=== PATIENT | male | born 1975 | race Caucasian/White ===

== ENCOUNTER 2019-02-21 17:03 | Emergency (ER) | payer BC, SELFPAY ==
[2019-02-21 17:08] VITALS: BP 147/91; PULSE 89; RESP 20; TEMP 36.8; O2SAT 97
--- NOTE | 2019-02-21 17:23 | W.ED.GENAD ---
Discharge Plan Disposition Patient Disposition: HOME Condition: Stable Discharge Details Chief Complaint: EyeProblem Clinical Impression: Chemosis of conjunctiva Primary Care Provider: None,None ED Provider: Amari Sim Home Meds and New Rx's Prescriptions: New prednisone 20 mg tablet 60 mg PO DAILY 5 Days Qty: 15 RF: 0 Continued clonazepam 0.5 mg Tablet 0.5 mg PO PRN PRNRF: 0 bupropion HCl [Wellbutrin XL] 150 mg Tablet Extended Release 24 Hr 150 mg PO DAILY RF: 0 desvenlafaxine succinate [Pristiq] 25 mg Tablet Extended Release 24 Hr 100 mg PO DAILY RF: 0 Discharge Instructions Additional Instructions: you can take benadryl as needed for itching if not better by Monday see either optometry or ophthamology. [facility] is in [facility] and can be reached at [phone] if you have severe worsening pain, vision changes or fevers return to the emergency department Medical Decision Making 43 yo male who denies chronic medical problems comes in with swelling and itching of the left lower eye. Denies trauma or pain, started a few hours ago while at the [employer]. Denies deep eye pain, vision changes. He has no periorbital edema, does have swelling of the inferior half of the left sclera consistent with chemosis. NO pain and no conjunctivits, 20/25 vision in left eye and 20/60 in the right eye, no evidence of any traumatic findings such as lacerations or globe rupture and normal iop. Will d/c on prednisone and advised if not better to see ophto/optometry Differential Diagnosis chemosis, subconjunctival hermorrhage, conjunctivitis HPI General Mode of arrival: ambulatory. Date/Time Provider Initiated Documentation: 02/21/19 17:05. Limitations to Documentation: no limitations. Information obtained by: patient. History of Present Illness 43 year old M presents to the emergency department with the chief complaint of left eye swelling, described as moderate, and it has been constant. No relieving factors improve symptom(s), No exacerbating factors reported . Patient did receive the following treatments prior to arrival, none Related Data Home Medications Medication Instructions Recorded Confirmed bupropion HCl [Wellbutrin XL] 150 mg PO DAILY 02/21/19 02/21/19 clonazepam 0.5 mg PO PRN PRN 02/21/19 02/21/19 desvenlafaxine succinate [Pristiq] 100 mg PO DAILY 02/21/19 02/21/19 prednisone 60 mg PO DAILY 5 Days #15 tab 02/21/19 Previous Rx's Medication Instructions Recorded prednisone 60 mg PO DAILY 5 Days #15 tab 02/21/19 Allergies Allergy/AdvReac Type Severity Reaction Status Date / Time No Known Allergies Allergy Unverified 02/21/19 17:10 General Stated Complaint: EyeProblem CALVIN: 3 Review of Systems Review of Systems All systems reviewed & are unremarkable except as noted in HPI and below Constitutional Denies chills, Denies fever(s) and Denies weakness Cardiovascular Denies chest pain and Denies dyspnea Respiratory Denies cough and Denies dyspnea Gastrointestinal Denies abdominal pain, Denies nausea and Denies vomiting Neurologic Denies weakness PFSH Social History Smoking/Tobacco Use Status: Never Drug use: Occasionally Substance use type: marijuana Details: CBD edibles Exam Const General: no acute distress Orientation: alert HENMT Head: normal to inspection Ears: external ears normal General nose exam: external nose normal Mouth: moist mucous membranes Eyes Alignment and Position: alignment normal Neck Neck: normal visual inspection Resp Effort & Inspection: normal respiratory effort and able to speak in complete sentences Cardio Rate: regular rate Skin General skin exam: no rashes or lesions noted Neuro General: alert and oriented x3 Extrem General: normal to inspection Psych Mental Status: mental status grossly normal Course Vital Signs Temperature 36.8 C 02/21/19 17:08 Pulse 89 02/21/19 17:08 Respiratory Rate 20 02/21/19 17:08 Blood Pressure 147/91 H 02/21/19 17:08 Pulse Oximetry 97 02/21/19 17:08 Temperature 36.8 C 02/21/19 17:08 Temperature Source Temporal Artery Scan 02/21/19 17:08 Pulse 89 02/21/19 17:08 Respiratory Rate 20 02/21/19 17:08 Respiratory Effort 02/21/19 17:17 Blood Pressure 147/91 H 02/21/19 17:08 Blood Pressure Position Sitting 02/21/19 17:08 Pulse Oximetry 97 02/21/19 17:08 Oxygen Delivery Method Room Air 02/21/19 17:08 Oxygen Flow Rate 0 02/21/19 17:08 Pain Level 1 02/21/19 17:08
[2019-02-21 17:35] VITALS: BP 147/91; PULSE 89; RESP 20; O2SAT 97
== END 2019-02-21 17:35 | disposition home or self-care (01) ==
PROVIDERS: Emergency Provider Emergency Medicine
DX: H11.422 Conjunctival edema, left eye (principal)
CPT/HCPCS: 99283